=== PATIENT | female | born 1970 | race Caucasian/White ===

== ENCOUNTER → 2019-02-15 | Outpatient (CLI) | payer OTHER ==
[~2019-02-15] MED LIST: CONRAY-43 43% 50ML VIAL (Q9960) As Ordered ONE; PROHANCE 279.3MG/ML 5ML VIAL (A9576) As Ordered ONE
--- NOTE | 2019-02-15 10:42 | REP ---
MR ARTHROGRAM LEFT HIP: Visualized osseous structures demonstrate no evidence of occult fracture. There is no avascular necrosis. There is mild marrow edema in a subchondral location along the inferior left sacroiliac joint, both sides of the joint. No other b one marrow signal is seen. There appears to be some degree of fraying of the anterior superior left hip labrum. No paralabral cyst is seen. There is mild increased signal of T2-weighted images in the soft tissues along the greater trochanter of the proximal left femur compatible with mild left-sided greater trochanteric tendinobursitis. There is no joint effusion. Other surrounding soft tissue structures appear unremarkable. There is trace free fluid in the pelvis. IMPRESSION: No occult fracture or evidence of avascular necrosis. Mild arthritic changes inferior left SI joint with mild subchondral marrow edema on both sides of the joint. Fraying of the anterior superior left hip labrum. Mild left-sided greater trochanteric tendinobursitis. Electronically Signed by Magdaleno Alexander MD 02/17/2019 12:26 P
--- NOTE | 2019-02-15 20:36 | REP ---
Reason For Exam/Comment: Bilateral primary osteoarthritis Procedure: Left hip MRI arthrogram The procedure was performed by ALINA Yeager, under the direct supervision of Dr. Alexander. The benefits and risks including but not limited to pain, infection, bleeding and anaphylaxis were explained to the patient and informed consent was obtained both verbally and written. Directly prior to the start of the procedure, a formal timeout was completed in the procedure room. Technique: The left femoral neck was localized using fluoroscopic guidance. The skin was prepped and draped in the usual sterile fashion. 5 mL of 1% lidocaine was used as a local anesthetic. Using fluoroscopic guidance a 22-gauge spinal needle was inserted and advanced to the left femoral neck joint space. 2 mL of Conray 43 was injected to verify needle placement. 12 mL of a solution containing 20 ml of sterile saline and a 0.15 ml of ProHance was injected into the joint. The needle was removed and the patient was taken MRI for post procedural imaging. The patient tolerated the procedure well and there were no immediate complications. 0.2 minutes of fluoroscopy time was utilized for this procedure. Some fluoroscopic images are performed with last image hold technology. These images require no additional radiation. Reviewed by ALINA May 02/15/2019 08:30 A Electronically Signed by Magdaleno Alexander MD 02/15/2019 08:27 P
== END ==
LOC: M RADPRO 06:17
PROVIDERS: ATTEND Physician Assistant
DX: M24.152 Other articular cartilage disorders, left hip (principal); M70.62 Trochanteric bursitis, left hip
CPT/HCPCS: 27093; 73723; 77002; A9576; Q9960

== ENCOUNTER → 2019-02-23 | Outpatient (CLI) | payer OTHER ==
--- NOTE | 2019-02-23 09:39 | REP ---
MR ARTHROGRAM RIGHT HIP: TECHNIQUE: Coronal T1, STIR through the pelvis, post arthrogram axial T1 fat sat, T2 fat sat, coronal T1 fat sat, T2 fat sat, sagittal T1 fat sat, axial oblique T1 fat sat right hip. There is no evidence of avascular necrosis. No occult fracture is seen. Mild chondromalacia is seen at the right hip joint. There is mild subchondral marrow edema in the anterior aspect of the superolateral acetabulum. There is also mild degenerative change and subchondral marrow edema at the left sacroiliac joint. No other abnormal bone marrow signal is seen. There is a tear of the superior aspect of the anterior labrum. No paralabral cyst is seen. Mild ill-defined high signal seen in the soft tissues along the greater trochanter compatible with mild greater trochanteric tendinobursitis. This finding is also seen on the left side. No other abnormal signal is seen in the surrounding soft tissue. Visualized intrapelvic structures appear unremarkable. IMPRESSION: MR arthrography of the right hip demonstrates a tear of the superior aspect of the anterior labrum. There is mild chondromalacia at the right hip joint with mild subchondral marrow edema and anterior aspect of the superolateral acetabulum. There is mild bilateral greater trochanteric tendinobursitis. Mild arthritic change at the left sacroiliac joint with mild subchondral marrow edema on both sides of the joint, inferiorly. Electronically Signed by Magdaleno Alexander MD 02/26/2019 07:02 P
--- NOTE | 2019-02-23 11:42 | REP ---
Reason For Exam/Comment: Primary osteoarthritis of the right hip Procedure: Right hip MRI arthrogram The procedure was performed by ALINA Yeager, under the direct supervision of Dr. Alexander. The benefits and risks including but not limited to pain, infection, bleeding and anaphylaxis were explained to the patient and informed consent was obtained both verbally and written. Directly prior to the start of the procedure, a formal timeout was completed in the procedure room. Technique: The right femoral neck was localized using fluoroscopic guidance. The skin was prepped and draped in the usual sterile fashion. 4 mL of 1% lidocaine was used as a local anesthetic. Using fluoroscopic guidance a 22-gauge spinal needle was inserted and advanced to the right femoral neck joint space. 3 mL of Conray 43 was injected to verify needle placement. 12 mL of a solution containing 20 ml of sterile saline and a 0.15 ml of ProHance was injected into the joint. The needle was removed and the patient was taken MRI for post procedural imaging. The patient tolerated the procedure well and there were no immediate complications. 0.1 minutes of fluoroscopy time was utilized for this procedure. Some fluoroscopic images are performed with last image hold technology. These images require no additional radiation. Reviewed by ALINA May 02/23/2019 08:34 A Electronically Signed by Magdaleno Alexander MD 02/23/2019 11:33 A
== END ==
LOC: M RADPRO 06:40
PROVIDERS: ATTEND Physician Assistant
DX: M94.251 Chondromalacia, right hip (principal); M70.61 Trochanteric bursitis, right hip; M24.159 Other articular cartilage disorders, unspecified hip
CPT/HCPCS: 27093; 73723; 77002; A9576; Q9960

== ENCOUNTER → 2021-01-27 | Outpatient (REF) | payer BC ==
[2021-01-27 13:16] LABS: ALBUMIN 3.6 GM/DL (3.2-5.2); ALT/SGPT 19 U/L (12-78); BILIRUBIN,TOTAL 0.4 MG/DL (0.2-1.0); BLOOD UREA NITROGEN 15 MG/DL (7-18); CALCIUM LEVEL 8.6 MG/DL (8.5-10.1); CARBON DIOXIDE LEVEL 28 MEQ/L (21-32); CHLORIDE LEVEL 105 MEQ/L (98-107); CHOLESTEROL LEVEL 192 MG/DL (<200); CREATININE FOR GFR 0.68 MG/DL (0.55-1.30); GLOMERULAR FILTRATION RATE > 60.0 (>58); GLUCOSE, FASTING 79 MG/DL (70-100); HDL CHOLESTEROL 64 MG/DL (>40); LDL CHOLESTEROL 111 MG/DL (<100); NON-HDL-C 128 MG/DL; SODIUM LEVEL 139 MEQ/L (136-145); TRIGLYCERIDES LEVEL 87 MG/DL (<150)
[2021-01-27 13:56] LABS: TOTAL 25(OH) VITAMIN D 42.9 NG/ML (30.0-100.0)
== END ==
LOC: M SFHCADAM 10:59
PROVIDERS: ATTEND Physician Assistant
DX: E78.2 Mixed hyperlipidemia (principal); E55.9 Vitamin D deficiency, unspecified

== ENCOUNTER → 2022-12-28 | Outpatient (CLI) | payer BC | LOC: M ADAMS 09:04 | PROVIDERS: ATTEND Family Medicine | DX: M25.511 Pain in right shoulder (principal) ==

== ENCOUNTER → 2022-12-28 | Outpatient (REF) | payer BC ==
[2022-12-28 14:07] LABS: ALBUMIN 3.8 G/DL (3.2-5.2); ALKALINE PHOSPHATASE 87 U/L (46-116); ALT/SGPT 76 U/L (7.0-40); AST/SGOT 37 U/L (<34); BILIRUBIN,TOTAL 0.5 MG/DL (0.3-1.2); BLOOD UREA NITROGEN 18 MG/DL (9-23); CALCIUM LEVEL 8.7 MG/DL (8.5-10.1); CARBON DIOXIDE LEVEL 29 MMOL/L (20-31); CHLORIDE LEVEL 104 MMOL/L (98-107); CHOLESTEROL LEVEL 177 MG/DL (<200); CHOLESTEROL RISK RATIO 2.67 (<5); CREATININE FOR GFR 0.72 MG/DL (0.55-1.30); GLOMERULAR FILTRATION RATE > 60.0 (>51); GLUCOSE, FASTING 84 MG/DL (60-100); HDL CHOLESTEROL 66.2 MG/DL (>40); LDL CHOLESTEROL 89.4 MG/DL (<100); NON-HDL-C 110.8 MG/DL; POTASSIUM SERUM 4.5 MMOL/L (3.5-5.1); SODIUM LEVEL 140 MMOL/L (136-145); TOTAL PROTEIN 6.7 G/DL (5.7-8.2); TRIGLYCERIDES LEVEL 107 MG/DL (<150)
== END ==
LOC: M SFHCADAM 08:59
PROVIDERS: ATTEND Family Medicine
DX: M25.50 Pain in unspecified joint (principal); E78.5 Hyperlipidemia, unspecified

== ENCOUNTER → 2023-03-08 | Outpatient (REF) | payer BC | LOC: M SFHCRHEU 14:53 | PROVIDERS: ATTEND Internal Medicine | DX: Z53.9 Procedure and treatment not carried out, unspecified reason (principal) ==

== ENCOUNTER → 2023-03-15 | Outpatient (REF) | payer BC ==
[2023-03-15 12:47] LABS: IRON (FE) 116 UG/DL (50-170)
[2023-03-15 12:48] LABS: C REACTIVE PROTEIN QUANTITATIV < 0.40 MG/DL (<1.0); FOLATE 19.87 NG/ML (>5.4); MAGNESIUM LEVEL 2.1 MG/DL (1.8-2.4); TOTAL 25(OH) VITAMIN D 107.7 NG/ML (20.0-100.0); VITAMIN B12 LEVEL 452 PG/ML (211-911)
== END ==
LOC: M SFHCRHEU 08:34
PROVIDERS: ATTEND Internal Medicine
DX: R53.82 Chronic fatigue, unspecified (principal); M25.431 Effusion, right wrist

== ENCOUNTER → 2023-03-15 | Outpatient (CLI) | payer BC | LOC: M PLAIMG 10:55 | PROVIDERS: ATTEND Internal Medicine | DX: M54.9 Dorsalgia, unspecified (principal); M25.431 Effusion, right wrist; M25.432 Effusion, left wrist ==

== ENCOUNTER → 2023-04-05 | Outpatient (CLI) | payer BC | LOC: M SLEEP HO 10:39 | PROVIDERS: ATTEND Internal Medicine | DX: G47.33 Obstructive sleep apnea (adult) (pediatric) (principal) ==

== ENCOUNTER → 2023-04-05 | Outpatient (CLI) | payer BC | LOC: M PLAIMG 11:40 | PROVIDERS: ATTEND Internal Medicine | DX: M79.641 Pain in right hand (principal); M79.642 Pain in left hand ==

== ENCOUNTER → 2023-07-28 | Outpatient (REF) | payer BC ==
[2023-07-28 14:06] LABS: ALKALINE PHOSPHATASE 87 U/L (46-116); ALT/SGPT 39 U/L (7.0-40); AST/SGOT 20 U/L (<34); BILIRUBIN,TOTAL 0.5 MG/DL (0.3-1.2); BLOOD UREA NITROGEN 17 MG/DL (9-23); CALCIUM LEVEL 8.8 MG/DL (8.5-10.1); CARBON DIOXIDE LEVEL 28 MMOL/L (20-31); CHLORIDE LEVEL 105 MMOL/L (98-107); CHOLESTEROL LEVEL 251 MG/DL (<200); CREATININE FOR GFR 0.74 MG/DL (0.55-1.30); GLOMERULAR FILTRATION RATE > 60.0 (>51); GLUCOSE, FASTING 82 MG/DL (60-100); HDL CHOLESTEROL 65.9 MG/DL (>40); LDL CHOLESTEROL 155.1 MG/DL (<100); NON-HDL-C 185.1 MG/DL; SODIUM LEVEL 138 MMOL/L (136-145); TOTAL PROTEIN 6.9 G/DL (5.7-8.2); TRIGLYCERIDES LEVEL 150 MG/DL (<150)
== END ==
LOC: M SFHCADAM 09:41
PROVIDERS: ATTEND Family Medicine
DX: E78.2 Mixed hyperlipidemia (principal)

== ENCOUNTER 2023-08-06 08:05 | Day surgery (SDC) | payer BC ==
[~2023-08-06] VITALS: Ht 152.4 cm; Wt 64.0 kg
[~2023-08-06 08:05] MED LIST changes: -CONRAY-43 43% 50ML VIAL (Q9960) As Ordered ONE; +NS 1,000 ML IV ONE; -PROHANCE 279.3MG/ML 5ML VIAL (A9576) As Ordered ONE
[2023-08-06] MEDS ORDERED: propofoL 200 MG/20 ML VIAL As Ordered ONE ×2 (09:41→09:43)
[2023-08-06 09:57] VITALS: TEMP 96.2
[2023-08-06 10:45] VITALS: BP 114/66; O2SAT 99
== END 2023-08-06 10:47 | disposition home or self-care (01) ==
LOC: M OPP 08:05
PROVIDERS: ATTEND Surgery
DX: Z12.11 Encounter for screening for malignant neoplasm of colon (principal); K64.1 Second degree hemorrhoids

== ENCOUNTER → 2023-09-14 | Outpatient (REF) | payer OTHER | LOC: M SFHCRHEU 12:52 | PROVIDERS: ATTEND Internal Medicine | DX: E67.3 Hypervitaminosis D (principal); R53.82 Chronic fatigue, unspecified ==

== ENCOUNTER → 2023-10-14 | Outpatient (CLI) | payer OTHER | LOC: M ADAMS 08:24 | PROVIDERS: ATTEND Internal Medicine | DX: M67.912 Unspecified disorder of synovium and tendon, left shoulder (principal) ==

== ENCOUNTER → 2024-04-11 | Outpatient (REF) | payer OTHER ==
[2024-04-11 14:48] LABS: ALBUMIN 4.3 G/DL (3.2-5.2); ALKALINE PHOSPHATASE 90 U/L (46-116); ALT/SGPT 37 U/L (7.0-40); AST/SGOT 21 U/L (<34); BILIRUBIN,TOTAL 0.4 MG/DL (0.3-1.2); BLOOD UREA NITROGEN 20 MG/DL (9-23); CALCIUM LEVEL 9.8 MG/DL (8.5-10.1); CARBON DIOXIDE LEVEL 27 MMOL/L (20-31); CHLORIDE LEVEL 108 MMOL/L (98-107); CHOLESTEROL LEVEL 268 MG/DL (<200); CHOLESTEROL RISK RATIO 4.48 (<5); CREATININE FOR GFR 0.66 MG/DL (0.55-1.30); GLOMERULAR FILTRATION RATE > 60.0 (>51); GLUCOSE, FASTING 79 MG/DL (60-100); HDL CHOLESTEROL 59.8 MG/DL (>40); LDL CHOLESTEROL 180.6 MG/DL (<100); NON-HDL-C 208.2 MG/DL; POTASSIUM SERUM 4.4 MMOL/L (3.5-5.1); SODIUM LEVEL 141 MMOL/L (136-145); TOTAL PROTEIN 7.5 G/DL (5.7-8.2); TRIGLYCERIDES LEVEL 138 MG/DL (<150)
== END ==
LOC: M SFHCADAM 07:39
PROVIDERS: ATTEND Family Medicine
DX: E78.5 Hyperlipidemia, unspecified (principal)

== ENCOUNTER → 2024-05-31 | Outpatient (REF) | payer OTHER ==
[2024-05-31 18:36] LABS: BASO % 0.5 % (0.0-1.0); EOS # 0.3 10^3/uL (0.0-0.5); EOS % 3.8 % (0.0-3.0); HEMATOCRIT 46.7 % (36.0-47.0); HEMOGLOBIN 15.5 g/dl (12.0-15.5); LYMPH # 2.1 10^3/uL (1.5-5.0); LYMPH % 26.6 % (24.0-44.0); MEAN CORPUSCULAR HEMOGLOBIN 30.6 pg (27.0-33.0); MEAN CORPUSCULAR HGB CONC 33.2 g/dl (32.0-36.5); MEAN CORPUSCULAR VOLUME 92.1 fl (80.0-96.0); MONO # 0.6 10^3/uL (0.0-0.8); MONO % 7.1 % (2.0-8.0); NEUTROPHILS # 4.9 10^3/uL (1.5-8.5); NEUTROPHILS % 61.7 % (36.0-66.0); PLATELET COUNT, AUTOMATED 315 10^3/uL (150-450); RED BLOOD COUNT 5.07 10^6/uL (4.00-5.40); WHITE BLOOD COUNT 7.9 10^3/uL (4.0-10.0)
[2024-05-31 18:59] LABS: FREE T4 1.32 NG/DL (0.89-1.76); THYROID STIMULATING HORMONE 1.049 uIU/ML (0.55-4.78)
== END ==
LOC: M SFHCADAM 15:18
PROVIDERS: ATTEND Physician Assistant Medical
DX: R00.0 Tachycardia, unspecified (principal)

== ENCOUNTER → 2024-10-03 | Outpatient (REF) | payer BC | LOC: M SFHCADAM 08:19 | PROVIDERS: ATTEND Family Medicine | DX: R53.82 Chronic fatigue, unspecified (principal); E67.3 Hypervitaminosis D ==

== ENCOUNTER → 2024-10-18 | Outpatient (REF) | payer BC ==
[2024-10-18 10:42] LABS: CHOLESTEROL RISK RATIO 3.45 (<5); LDL CHOLESTEROL 144.8 MG/DL (<100)
== END ==
LOC: M SFHCADAM 08:59
PROVIDERS: ATTEND Family Medicine
DX: E78.2 Mixed hyperlipidemia (principal)

== ENCOUNTER → 2025-03-30 | Outpatient (CLI) | payer BC | LOC: M SOG 06:48 | PROVIDERS: ATTEND Neuromusculoskeletal Medicine, Sports Medicine | DX: M25.521 Pain in right elbow (principal) ==

== ENCOUNTER → 2025-04-24 | Outpatient (REF) | payer BC ==
[2025-04-24 15:09] LABS: BASO # 0.0 10^3/uL (0.0-0.2); BASO % 0.4 % (0.0-1.0); EOS # 0.2 10^3/uL (0.0-0.5); EOS % 2.9 % (0.0-3.0); LYMPH # 2.1 10^3/uL (1.5-5.0); LYMPH % 29.9 % (24.0-44.0); MONO # 0.6 10^3/uL (0.0-0.8); MONO % 9.2 % (2.0-8.0); NEUTROPHILS # 4.0 10^3/uL (1.5-8.5); NEUTROPHILS % 57.5 % (36.0-66.0); PLATELET COUNT, AUTOMATED 272 10^3/uL (150-450)
[2025-04-24 15:15] LABS: ALT/SGPT 28.0 U/L (7.0-40); AST/SGOT 25.0 U/L (<34); CALCIUM LEVEL 9.1 MG/DL (8.5-10.1); CARBON DIOXIDE LEVEL 29.0 MMOL/L (20-31); CHLORIDE LEVEL 106.0 MMOL/L (98-107); CHOLESTEROL LEVEL 200.0 MG/DL (<200); CHOLESTEROL RISK RATIO 3.14 (<5); CREATININE FOR GFR 0.84 MG/DL (0.55-1.30); GLOMERULAR FILTRATION RATE 83.0 (>51); LDL CHOLESTEROL 116.5 MG/DL (<100); NON-HDL-C 136.5 MG/DL; POTASSIUM SERUM 3.8 MMOL/L (3.5-5.1); SODIUM LEVEL 140.0 MMOL/L (136-145); TRIGLYCERIDES LEVEL 100.0 MG/DL (<150)
== END ==
LOC: M SFHCADAM 09:02
PROVIDERS: ATTEND Family Medicine
DX: Z00.00 Encounter for general adult medical examination without abnormal findings (principal)